=== PATIENT | female | born 1995 | race Caucasian/White ===

== ENCOUNTER 2017-07-02 16:55 | Emergency (ER) | payer OTHER ==
[~2017-07-02] VITALS: Ht 160 cm; Wt 56.7 kg
--- NOTE | ~2017-07-02 | EKG ---
[address] [address] ELECTROCARDIOGRAM REPORT Name: SHANONMICK [facility] [id number] Admission: 07/02/17 Attend Phys: Discharge: Date of : [birth year] Report #: [id number] THIS REPORT FOR: //name// [facility] ED Test Date: 2017-07-02 Test Time: 16:59:41 Pat Name: MICK CLAUDIO Department: Room: Gender: F Authorization Rep: ESEQUIEL : 1995 Requested By: Deidra Jaramillo Order Number: [id number] MD: Cornel Feliz Measurements Intervals [place] Rate: 102 P: 37 MD: 127 QRS: 43 QRSD: 79 T: 31 QT: 326 QTc: 425 Interpretive Statements Sinus tachycardia PAC No previous ECG available for comparison Electronically Signed On 07-02-2017 17:44:05 CDT by Cornel Feliz [email or web address] <ELECTRONICALLY SIGNED> By: Cornel Feliz MD 07/02/17 1744 1659 1659 Cornel Feliz MD /CHUCKIE
[2017-07-02 17:33] LABS: ABSOLUTE NEUTROPHILS 6.2 thou/uL (1.4-8.2); BASOPHILS 0.6 % (0.0-2.0); EOSINOPHILS 0.6 % (0.0-3.0); HEMATOCRIT 42.8 % (37.0-47.0); LYMPHOCYTES 25.4 % (24.0-44.0); MCH 32.2 pg (26.0-34.0); MONOCYTES 6.3 % (1.0-8.0); PLATELET COUNT 208 thou/uL (150-400); POLYS 67.1 % (36.0-66.0); RBC 4.66 mil/uL (4.20-5.00); RDW 12.8 % (10.5-14.5); WBC 9.2 thou/uL (4.0-11.0)
[2017-07-02 17:34] LABS: MANUAL DIFF NO
[2017-07-02 17:35] LABS: CREATININE 0.9 mg/dL (0.6-1.0); POTASSIUM 3.2 mmol/L (3.5-5.1)
[2017-07-02 18:15] VITALS: BP 128/92
== END 2017-07-02 18:10 | disposition home or self-care (01) ==
LOC: ER 16:55
PROVIDERS: Emergency Medicine
DX: I49.1 Atrial premature depolarization (principal); R00.2 Palpitations; F41.9 Anxiety disorder, unspecified; F32.9 Major depressive disorder, single episode, unspecified; F17.210 Nicotine dependence, cigarettes, uncomplicated; Z88.1 Allergy status to other antibiotic agents